=== PATIENT | female | born 1995 | race Caucasian/White ===

== ENCOUNTER 2020-10-10 18:52 | Emergency (ER) | payer OTHER, SELFPAY ==
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
[2020-10-10 19:04] VITALS: BP 113/62; PULSE 73; RESP 16; TEMP 36.8; O2SAT 98; BMI 26.2
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
== END 2020-10-10 20:28 | disposition home or self-care (01) ==
PROVIDERS: Emergency Provider Internal Medicine; PCP Pediatrics
DX: S80.02XA Contusion of left knee, initial encounter (principal); S80.212A Abrasion, left knee, initial encounter; V43.52XA Car driver injured in collision with other type car in traffic accident, initial encounter; Y93.89 Activity, other specified; Y92.414 Local residential or business street as the place of occurrence of the external cause; Y99.9 Unspecified external cause status
CPT/HCPCS: 73564; 99283; 99284

== ENCOUNTER 2023-05-31 09:56 | Outpatient (REF) | payer OTHER, SELFPAY ==
[2023-05-31 15:44] LABS: Alanine Aminotransferase 14 U/L (0-31); Albumin Level 4.4 g/dL (3.5-5.0); Alkaline Phosphatase 71 U/L (39-117); Anion Gap 13 (12-20); Aspartate Amino Transferase 22 U/L (5-31); Bilirubin Direct < 0.2 mg/dL (0.0-0.5); Bilirubin Total 0.2 mg/dL (0.0-1.0); Blood Urea Nitrogen 13 mg/dL (9-16); Calcium 9.2 mg/dL (8.4-10.2); Carbon Dioxide 22 mmol/L (22-29); Chloride 108 mmol/L (96-108); Estimated Glomerular Filt Rate > 60; Glucose Random 69 mg/dL (60-115); Potassium 3.6 mmol/L (3.3-5.1); Sodium 139 mmol/L (135-145); TSH reflex Free T4 3.09 uIU/mL (0.32-4.0); Total Protein 7.5 g/dL (6.5-8.0); Vitamin D 25-OH Total 22.8 ng/mL (>30)
== END 2023-05-31 09:57 | disposition home or self-care (01) ==
LOC: HO.CHCLDS 09:56
PROVIDERS: Visit Provider Pediatrics
DX: J45.20 Mild intermittent asthma, uncomplicated (principal); R53.83 Other fatigue; E55.9 Vitamin D deficiency, unspecified
CPT/HCPCS: 36415; 80048; 80076; 82306; 84443; 85025

== ENCOUNTER 2024-03-05 | Outpatient (REF) | payer MEDICAID, SELFPAY | END 2024-03-05 00:01 | disposition home or self-care (01) | LOC: HO.LNP | PROVIDERS: Visit Provider Pediatrics | DX: Z12.4 Encounter for screening for malignant neoplasm of cervix (principal) | CPT/HCPCS: 87625; 88175 ==

== ENCOUNTER 2024-03-05 11:23 | Outpatient (REF) | payer OTHER, SELFPAY ==
[2024-03-05 14:46] LABS: MANUAL DIFF FLAG NO
[2024-03-05 15:01] LABS: Hematocrit 31.6 % (37.0-47.0); Hemoglobin 9.8 g/dl (12.0-16.0); Imm Gran Abs Auto 0.01 X10*3/uL (0.00-0.03); Imm Gran Pct Auto 0.2 % (0.0-0.4); Lymphocytes Absolute Auto 1.1 X10*3/uL (1.2-4.9); Mean Corpuscular Hemoglobin 21.8 pg (27.0-33.0); Mean Corpuscular Volume 70.4 fL (80.0-98.0); Mean Platelet Volume 11.1 fL (9.4-12.3); Monocytes Absolute Auto 0.3 X10*3/uL (0.1-1.2); Monocytes Percent Auto 8.2 % (2-11); Neutrophils Absolute Auto 2.5 x10*3/uL (2.0-8.3); Neutrophils Percent Auto 62.6 % (45-73); Platelet Count 345 X10*3/uL (160-400); Red Blood Count 4.49 X10*6/uL (4.20-5.50); Red Cell Distribution Width 18.2 % (11.0-16.0)
[2024-03-05 15:23] LABS: Iron 21 mcg/dL (30-160); Percent Iron Saturation 5 % (15-50); Total Iron Binding Capacity 417 mcg/dL (228-428); Unsaturated Iron Binding 396 ug/dL
[2024-03-05 15:41] LABS: Ferritin 6 ng/mL (10-122); Vitamin B12 568 pg/mL (200-900)
== END 2024-03-05 11:24 | disposition home or self-care (01) ==
LOC: HO.CHCLDS 11:23
PROVIDERS: Visit Provider Pediatrics
DX: D50.0 Iron deficiency anemia secondary to blood loss (chronic) (principal)
CPT/HCPCS: 36415; 82607; 82728; 82746; 83540; 85025

== ENCOUNTER → 2024-03-18 10:15 | Outpatient (BNV) | payer MEDICAID, SELFPAY | PROVIDERS: PCP Pediatrics; Referring Provider Pediatrics; Visit Provider Internal Medicine | DX: D50.9 Iron deficiency anemia, unspecified (principal) | CPT/HCPCS: 99204 ==

== ENCOUNTER 2024-04-14 09:00 | Outpatient (RCR) | payer MEDICAID, SELFPAY ==
[2024-03-24 09:01] VITALS: BP 105/61; PULSE 68; RESP 18; TEMP 36.1; O2SAT 98; BMI 26.1
[2024-03-24] MEDS: Iron Sucrose Complex 200 MG in 0.9 % Sodium Chloride 100 ML 440 MG IV (09:20)
[2024-03-31 09:00] VITALS: BP 113/58; PULSE 72; RESP 14; TEMP 36.4; O2SAT 98
[2024-03-31] MEDS: Iron Sucrose Complex 200 MG in 0.9 % Sodium Chloride 100 ML 440 MG IV (09:11)
[2024-03-31] MEDS: 0.9 % Sodium Chloride Flush 10 ML SYRINGE 5 ML IVFLUSH (09:33)
[2024-04-07 09:09] VITALS: BP 110/61; PULSE 69; RESP 16; TEMP 36.6
[2024-04-07] MEDS: Iron Sucrose Complex 200 MG in 0.9 % Sodium Chloride 100 ML 440 MG IV (09:27)
[2024-04-07] MEDS: 0.9 % Sodium Chloride Flush 10 ML SYRINGE 5 ML IVFLUSH (09:44)
[2024-04-14 09:26] VITALS: BP 116/58; PULSE 65; RESP 16; TEMP 36.3; O2SAT 99
[2024-04-14] MEDS: Iron Sucrose Complex 200 MG in 0.9 % Sodium Chloride 100 ML 440 MG IV (09:43)
[2024-04-14] MEDS: 0.9 % Sodium Chloride Flush 10 ML SYRINGE 5 ML IVFLUSH (09:59)
== END 2024-04-14 10:33 | disposition home or self-care (01) ==
LOC: HO.INF 09:00
PROVIDERS: Visit Provider Internal Medicine
DX: D64.9 Anemia, unspecified (principal)
CPT/HCPCS: 96365; 96374; J1756

== ENCOUNTER 2024-08-14 10:55 | Outpatient (REF) | payer MEDICAID, SELFPAY ==
[2024-08-14 14:20] LABS: MANUAL DIFF FLAG NO
[2024-08-14 14:24] LABS: Basophils Percent Auto 0.7 % (0-2); Eosinophils Absolute Auto 0.1 X10*3/uL (0.0-0.4); Eosinophils Percent Auto 1.9 % (0-4); Hematocrit 36.6 % (37.0-47.0); Hemoglobin 12.7 g/dl (12.0-16.0); Imm Gran Abs Auto 0.01 X10*3/uL (0.00-0.03); Imm Gran Pct Auto 0.2 % (0.0-0.4); Lymphocytes Absolute Auto 1.5 X10*3/uL (1.2-4.9); Lymphocytes Percent Auto 34.2 % (20-40); Mean Corpuscular HGB Conc 34.7 g/dl (31.0-35.0); Mean Corpuscular Hemoglobin 30.5 pg (27.0-33.0); Mean Platelet Volume 10.3 fL (9.4-12.3); Monocytes Absolute Auto 0.4 X10*3/uL (0.1-1.2); Monocytes Percent Auto 8.4 % (2-11); Neutrophils Absolute Auto 2.4 x10*3/uL (2.0-8.3); Neutrophils Percent Auto 54.6 % (45-73); Platelet Count 298 X10*3/uL (160-400); Red Blood Count 4.16 X10*6/uL (4.20-5.50); Red Cell Distribution Width 12.8 % (11.0-16.0); White Blood Count 4.3 X10*3/uL (4.8-10.8)
[2024-08-14 15:04] LABS: TSH reflex Free T4 2.24 uIU/mL (0.32-4.0)
[2024-08-14 15:52] LABS: CT PCR NOT DETECTED (Not Detect.); NG PCR NOT DETECTED (Not Detect.)
[2024-08-15 04:07] LABS: Syphilis Screen Nonreactive (Nonreactive)
[2024-08-15 04:53] LABS: HIV AB/AG Nonreactive (Nonreactive); HIV Num 1 0.08 S/CO (0.00-0.99)
[2024-08-15 06:05] LABS: ~HepC Num1 0.13 S/CO (0.00-0.79); ~Hepatitis C Antibody Nonreactive (Nonreactive)
== END 2024-08-14 10:56 | disposition home or self-care (01) ==
LOC: HO.CHCLDS 10:55
PROVIDERS: Visit Provider Pediatrics
DX: J45.20 Mild intermittent asthma, uncomplicated (principal); Z11.3 Encounter for screening for infections with a predominantly sexual mode of transmission
CPT/HCPCS: 36415; 84443; 85025; 86780; 86803; 87389; 87491; 87591

== ENCOUNTER 2024-11-06 16:01 | Outpatient (REF) | payer MEDICAID, SELFPAY ==
--- OUTSIDE RECORDS SUMMARY | 2024-11-06 16:47 | XMS_ITS | Clinical Summary ---
Author Organization [facility] [facility] Address [address] [place] [address] Care Team Providers Care Team Leader Name Role Phone Kristi Hernandez MD Primary Care Provider [phone] Allergies Active Allergy Reactions Criticality Noted Date Comments Latex 02/28/2017 Other reaction(s): Trouble Breathing Medications albuterol 108 (90 Base) MCG/ACT inhaler Inhale 2 puffs every 4 (four) hours if needed for wheezing. 18 g 3 08/14/2024 08/14/20 25 Active Melatonin 3 MG capsule Take 1 capsule orally at bedtime prn insomnia 30 capsule 11 08/14/2024 Active azithromycin (Zithromax) 250 MG tablet Take 2 tabs orally on day 1 ,then 1 tab orally daily for 4 more days 6 tablet 11/06/2024 Active Active Problems Problem Noted Date Diagnosed Date Mild asthma 08/30/2015 Encounters Date Type Department Care Team Description 11/06/2024 9:00 AM EDT Office Visit [facility] [address] [place] [address] Kristi Hernandez MD URI, acute (Primary Dx); Subacute maxillary sinusitis 11/06/2024 Population Health Risk Score [facility] (C3) Department [address] [phone] Provider, Population Health Generic 11/06/2024 Travel 11/03/2024 Travel 08/31/2024 Patient Outreach [facility] [address] [place] [address] Kristi Hernandez MD Care Coordination (SDFL/graduate) 08/27/2024 Telephone [facility] [address] [place] [address] Anisha Modi RN Care Management (C3- f/u call lv) 08/14/2024 10:00 AM EST Office Visit [facility] [address] [place] [address] Kristi Hernandez MD Routine screening for STI (sexually transmitted infection) (Primary Dx); Mild intermittent asthma without complication; Routine general medical examination at a health care facility 08/14/2024 Patient Outreach [facility] [address] [place], [place] [phone] Kristi Hernandez MD Care Coordination ([facility] f/u) 08/14/2024 Telephone [facility] [address] [place] [address] Anisha Modi RN Care Management ([facility]- f/u call) 08/14/2024 Travel from Last 3 Months Immunizations Name Administration Dates Next Due DTaP, 5 pertussis antigens 10/30/2002,,04/11/1998,01/18,1997 HPV, Quadrivalent 10/03/2010,03/16/2008,12/01/19 08 Hep A, ped/adol, 2 dose 02/17/2014 Hep B, Adolescent or Pediatric 10/04/1998,1997,1997 Hib (HbOC) 10/04/1998, 8,01/18/1998,10/14 IPV 10/30/2002,199 8,01/18/1998,10/14 Influenza injectable quadriv alent preservative free 05/31/2023,07/12/2022,06/29/2021,08/30 Influenza, IIV3, injectable 10/03/2010 MMR 10/30/2002,10/04/1998 Meningococcal MCV4P ACYW-135 02/23/2016,10/03/19 11 Moderna Covid-19 Vaccine 12+ 02/18/2021,01/22/20 21 Tdap 02/23/2016,12/01/2007 Varicella 09/15/2000 Social History Tobacco Use Types Packs/Day Years Used Date Smoking Tobacco: Never Passive Smoke Exposure: Never Smokeless Tobacco: Never Tobacco Cessation:Counseling Given: Not Answered Alcohol Answer Date Recorded Frequency of Alcohol Consumption Not on file 05/31/2023 Average Number of Drinks Not on file 023 Frequency of Binge Drinking Not on file 01/2023 Score 0 05/31/2023 Depression Answer Date Recorded Patient Health Questionnaire-9 Score 1 08/14/2024 Patient Health Questionnaire-9 Score 1 08/14/2024 Last PHQ-9: Questionnaire Data Not on file 1 10/15/2023 Housing Stability Answer Date Recorded What is your housing situation today? I have bhavya delacruz 08/07/[address] you li ve. Do you have problems with any of the following? None of the above 08/07/2024 Food Insecurity Answer Date Recorded Within the past 12 months, y ou worried that your food would run out before you got money to buy more: Never True 08/07/2024 Within the past 12 months,th e food you bought just didn't last and you didn't have enough money to get more: Never True Transportation Answer Date Recorded In the past 12 months, has l ack of transportation kept you from medical appts, meetings, work or from getting things needed for daily living? No 06/12/2024 Utilities Answer Date Recorded In the past 12 months, has t he electric, gas, oil or water company threatened to shut off services in your home? No 08/07/2024 Depression Answer Date Recorded Patient Health Questionnaire-2 Score 0 08/14/2024 Internet Access Answer Date Recorded Internet Access Q1 Yes 06/12/2024 Internet Access Q2 Not on file 06/12/2024 Comments Unknown Sex and Gender Information Value Date Recorded Sex Assigned at Female 06/25/2022 10:19 AM EDT Legal Sex Female 10:19 AM EDT Gender Identity Female 06/25/2022 10:19 AM EDT Sexual Orientation Straight 06/25/2022 10 :19 AM EDT Last Filed Vital Signs Vital Sign Reading Time Taken Comments Blood Pressure 127/72 11/06/2024 9:11 AM EDT Pulse 83 11/06/2024 9:11 AM EDT Temperature 36.3 ??C (97.4 ??F) 11/06/2024 9:11 AM ED T Respiratory Rate 16 11/06/2024 9:11 AM EDT Oxygen Saturation 98% 11/06/2024 9:11 AM EDT Inhaled Oxygen Concentration - - Weight 54 kg (119 lb) 11/06/2024 9:11 AM EDT Height 149.9 cm (4' 11 ) 11/06/2024 9:11 AM EDT Body Mass Index 24.04 11/06/2024 9:11 AM EDT Plan of Treatment Health Maintenance Due Date Last Done Comments Family Planning (PISQ) 2012 Hepatitis A Vaccines (2 of 2 - 2-dose series) 08/19/2014 02/17/2014 Pneumococcal Vaccine: Pediatrics (0 to 5 Years) and At-Risk Patients (6 to 49) Years) (1 of 2 - PCV) 2016 COVID-19 Vaccine ( - season) 2024 02/18/2021, 01/21/2021 SDOH Screening 08/07/2025 08/07/2024 Alcohol/Substance Use Screening 08/14/2025 08/14/2024 Depression Screening 08/14/2025 08/14/2024, 08/14/20 24 Tobacco Screening 11/06/2025 11/06/2024 DTaP/Tdap/Td Vaccines (8 - Td or Tdap) 02/22/2026 02/23/2016, 12/01/2007, 10/30/2002, Additional history exists Pap Smear 03/10/2027 03/10/2024, 02/23, 02/01/2021 Zoster Vaccines (1 of 2) 2047 RSV Patients and Patients Aged 60 years or older (1 - 1-dose 75+ series) 2072 HIB Vaccines Completed 10/04/1998, 03/26, 01/18/1998, Additional history exists Hepatitis B Vaccines Completed 10/04/1998, 1997, 1997 IPV Vaccines Completed 10/30/2002, 03/26, 01/18/1998, Additional history exists HPV Vaccines Completed 10/03/2010, 02/24, 12/01/2007 Meningococcal Vaccine Completed 02/23/2016, 011 Influenza Vaccine Completed 06/24/2024, , 07/12/2022, Additional history exists HIV Screening Completed 08/14/2024 Hepatitis C Screening Completed 08/14/2024 RSV under 20 months Aged Out No longe r eligible based on patient's age to complete this topic Rotavirus Vaccines Aged Out No longer eligible based on patient's age to complete this topic Procedures Procedure Name Priority Date/Time Associated Diagnosis Comments HIV 1/2 ANTIGEN/ANTIBODY, FOURTH GENERATION W/RFL Routine 08/14/2024 10:56 AM EST Mild intermittent asthma without complication Routine screening for STI (sexually transmitted infection) SYPHILIS SCREEN Routine 08/14/2024 10:56 AM EST Mild intermittent asthma without complication Routine screening for STI (sexually transmitted infection) HEPATITIS C AB W/REFL TO HCV RNA, QN, PCR Routine 08/14/2024 10:56 AM EST Mild intermittent asthma without complication Routine screening for STI (sexually transmitted infection) TSH W/REFLEX TO FT4 Routine 08/14/2024 1 0:56 AM EST Mild intermittent asthma without complication Routine screening for STI (sexually transmitted infection) CBC WITH AUTO DIFFERENTIAL Routine 08/14/2024 10:56 AM EST Mild intermittent asthma without complication Routine screening for STI (sexually transmitted infection) CHLAMYDIA/N. GONORRHOEAE RNA, TMA, UROGENITAL Routine 08/14/2024 10:40 AM EST Mild intermittent asthma without complication Routine screening for STI (sexually transmitted infection) HM PAP/HPV Routine 03/10/2024 from Last 3 Months or Most Recently Relevant to Health Maintenance Results * Syphilis Screen (08/14/2024 10:56 AM EST) Syphilis Screen Nonreactive Nonreactive [facility] Blood 08/14/2024 10:5 6 AM EST 08/14/2024 2:14 PM EST us Kristi Hernandez MD LAB BLOOD ORDERABLES Final Re sult Performing Organization Address City/[facility]/ZIP Co de Phone Number [facility] [address] [place] [address] [phone] * TSH W/Reflex to FT4 (08/14/2024 10:56 AM EST) Pathologist [facility] TSH reflex Free T4 2.24 0.32 - 4.0 uIU/mL [facility] Blood Venous blood specimen / Unknown 08/14/2024 10:56 AM EST 08/14/2024 2:14 PM EST us Kristi Hernandez MD LAB BLOOD ORDERABLES Final Re sult Performing Organization Address [facility] Co de Phone Number [facility] [address] [place] [address] [phone] * (ABNORMAL) CBC auto differential (08/14/2024 10:56 AM EST) Pathologist [facility] White Blood Count 4.3(L) 4.8 - 10.8 X10*3/uL [facility] Red Blood Count 4.16(L) 4.20 - 5.50 X10*6/uL [facility] Hemoglobin 12.7 12.0 - 16.0 g/dl [facility] Hematocrit 36.6(L) 37.0 - 47.0 % [facility] Mean Corpuscular Volume 88.0 80.0 - 98.0 fL [facility] Mean Corpuscular Hemoglobin 30.5 27.0 - 33.0 pg [facility] Mean Corpuscular HGB Conc 34.7 31.0 - 35.0 g/dl [facility] Red Cell Distribution Width 12.8 11.0 - 16.0 % [facility] Platelet Count 298 160 - 400 X10*3/uL [facility] Mean Platelet Volume 10.3 9.4 - 12.3 fL [facility] Neutrophils Percent Auto 54.6 45 - 73 % [facility] Imm Gran Pct Auto 0.2 0.0 - 0.4 % [facility] Lymphocytes Percent Auto 34.2 20 - 40 % [facility] Monocytes Percent Auto 8.4 2 - 11 % [facility] Eosinophils Percent Auto 1.9 0 - 4 % [facility] Basophils Percent Auto 0.7 0 - 2 % [facility] NRBC Pct Auto 0.0 0.0 - 0.2 /100WBC [facility] Neutrophils Absolute Auto 2.4 2.0 - 8.3 x10*3/uL [facility] Imm Gran Abs Auto 0.01 0.00 - 0.03 X10*3/uL [facility] Lymphocytes Absolute Auto 1.5 1.2 - 4.9 X10*3/uL [facility] Monocytes Absolute Auto 0.4 0.1 - 1.2 X10*3/uL [facility] Eosinophils Absolute Auto 0.1 0.0 - 0.4 X10*3/uL [facility] Basophils Absolute Auto 0.0 0.0 - 0.2 X10*3/uL [facility] NRBC Abs Auto 0.000 0.0 - 0.012 X10*3/uL [facility] Blood Venous blood specimen / Unknown 08/14/2024 10:56 AM EST 08/14/2024 2:14 PM EST us Kristi Hernandez MD LAB BLOOD ORDERABLES Final Re sult [facility] [address], [place] [phone] * Hepatitis C Antibody with Reflex to HCV, RNA, Quantitative, Real-Time PCR (08/14/2024 10:56 AM EST) Hepatitis C Antibody Nonreactive Nonreactive [facility] Comment:Antibodies to HCV no t detected; does not exclude early acuteHCV infection. Blood Venous blood specimen / Unknown 08/14/2024 10:56 AM EST 08/14/2024 2:14 PM EST Kristi Hernandez MD LAB BLOOD ORDERABLES Final Re sult Performing Organization Address [facility] Co de Phone Number [facility] [address] [place] [address] [phone] * HIV-1/2 Antigen and Antibodies, Fourth Generation, with Reflexes (08/14/2024 10:56 AM EST) HIV AB/AG Nonreactive Nonreactive [facility] Comment:HIV-1 p24 Ag and/or HIV-1/HIV-2 Ab not detected.A test result that is nonreactive does not exclude thepossibility of exposure to or infection with HIV-1 and/orHIV-2. Nonreactive results in this assay for individualswith prior exposure to HIV-1 and/or HIV-2 may be due toantigen and antibody levels that are below the limit ofdetection of this assay.The [facility] HIV Ag/Ab Combo assay result andsupplemental assay results should be interpreted inconjunction with the patient's clinical presentation,history and other laboratory results. If the results areinconsistent with clinical evidence, additional testing issuggested to confirm the result. Blood Venous blood specimen / Unknown 08/14/2024 10:56 AM EST 08/14/2024 2:14 PM EST Kristi Hernandez MD LAB BLOOD ORDERABLES Final Re sult Performing Organization Address [facility]/ZIP Co de Phone Number [facility] [address] [place] [address] [phone] * Chlamydia/N. Gonorrhoeae RNA, TMA, Urogenitial (08/14/2024 10:40 AM EST) CT PCR NOT DETECTED Not Detect. [facility] Comment:A not detected test result does not exclude the possibilityof infection because test results can be affected byimproper specimen collection, concurrent antibiotic therapy,or the number of organisms in the specimen which may bebelow the sensitivity of the test. As with many diagnostictests, results from the Xpert CT/NG assay should beinterpreted in conjunction with other laboratory andclinical data available to the clinician.Xpert CT/NG performance has not been evaluated in patientsless than 14 years of age. The assay should not be used forthe evaluationof suspected sexual abuse or for other medico-legalindications. Additional testing is recommended in anycircumstance when false positive or false negative resultscould lead to adverse medical, social or psychologicalconsequences. NG PCR NOT DETECTED Not Detect. [facility] Comment:A not detected test result does not exclude the possibilityof infection because test results can be affected byimproper specimen collection, concurrent antibiotic therapy,or the number of organisms in the specimen which may bebelow the sensitivity of the test. As with many diagnostictests, results from the Xpert CT/NG assay should beinterpreted in conjunction with other laboratory andclinical data available to the clinician.Xpert CT/NG performance has not been evaluated in patientsless than 14 years of age. The assay should not be used forthe evaluationof suspected sexual abuse or for other medico-legalindications. Additional testing is recommended in anycircumstance when false positive or false negative resultscould lead to adverse medical, social or psychologicalconsequences. Swab (Vaginal Swab) 08/14/2024 10:40 AM EST 08/14/2024 2:20 PM EST Narrative [facility] - 08/14/2024 3:53 PM EST Vaginal Kristi Hernandez MD LAB MICROBIOLOGY - GENERAL OR DERABLES Final Result [facility] [address] [place] [address] [phone] * HM PAP/HPV (03/10/2024) Pap Smear 1. NILM 1. NILM Kritsi Hernandez MD HEALTH MAINTENANCE Final Resu lt from Last 3 Months or Most Recently Relevant to Health Maintenance Insurance [facility] C3 Care Teams Team Leader Relationship Specialty Start Date End Date Kristi Hernandez MD [address] [place] [address] [place] [phone] PCP - General Family Medicine 02/15/12
--- OUTSIDE RECORDS SUMMARY | 2024-11-06 16:47 | XMS_ITS | Encounter Summary ---
Author Organization [employer] Address [address] [place] [address] Care Team Providers Care Motorcycle Mechanic Name Role Phone Kristi Hernandez MD Primary Care Provider [phone] Encounter Details Date Type Department Care Team (Latest Contact Info) Description 11/06/2024 Travel Social History Tobacco Use Types Packs/Day Years Used Date Smoking Tobacco: Never Passive Smoke Exposure: Never Smokeless Tobacco: Never Alcohol Answer Date Recorded Frequency of Alcohol [...] Orientation Straight 06/25/2022 10 :19 AM EDT documented as of this encounter Plan of Treatment Not on file documented as of this encounter Visit Diagnoses Not on filedocumented in this encounter Additional Health Concerns Assessment Noted Time PHQ-9 Depression Total Score: 1 08/14/20 24 10:47 AM EST documented as of this encounter Care Teams Motorcycle Mechanic Relationship Specialty Start Date End Date Kristi Hernandez MD [address] [place] [phone] PCP - General Family Medicine 02/15/12 documented as of this encounter
--- OUTSIDE RECORDS SUMMARY | 2024-11-06 16:48 | XMS_ITS | Encounter Summary ---
Author Organization [employer] Address [address] [place] [address] Care Team Providers Care Search Coordinator Name Role Phone Kristi Hernandez MD Primary Care Provider Encounter Details Date Type Department Care Team (Latest Contact Info) Description 11/03/2024 Travel Social History Tobacco Use Types Packs/Day [...] documented as of this encounter Care Teams Search Coordinator Relationship Specialty Start Date End Date Kristi Hernandez MD [address] [place] [phone] PCP - General Family Medicine 02/15/12 documented as of this encounter
--- OUTSIDE RECORDS SUMMARY | 2024-11-06 16:48 | XMS_ITS | Encounter Summary ---
Author Organization [employer] Address [address] [facility] 7t [place] [address] Care Team Providers Care Joint Creaser Name Role Phone Kristi Hernandez MD Primary Care Provider [phone] Encounter Details Date Type Department Care Team ([facility] st Contact Info) Description 11/06/2024 9:00 AM EDT Office Visit [facility] CHC MED & PEDS [address] [place], [place] [phone] Kristi Hernandez MD [address] [place] [address] URI, acute (Primary Dx); Subacute maxillary sinusitis Social History Tobacco Use Types Packs/Day Years [...] AM EDT documented as of this encounter Last Filed Vital Signs Vital Sign Reading [...] Mass Index 24.04 11/06/2024 9:11 AM EDT documented in this encounter Progress Notes * Kristi Hernandez MD - 11/06/2024 9:00 AM EDT Subjective Patient ID: Carmen Vela is a 29 y.o. female who presents for URI. Took OTC dayquill and nyquill.Works at a hospital. Sore Throat This is a new problem. The current episode started in the past 7 days. The problem has been waxing and waning. Neither side of throat is experiencing more pain than the other. There has been no fever. The fever has been present for 3 to 4 days. The pain is at a severity of 4/10. The pain is mild. Associated symptoms include congestion, coughing and headaches. Pertinent negatives include no abdominal pain, diarrhea, drooling, ear discharge, ear pain, hoarse voice, plugged ear sensation, neck pain, shortness of breath, stridor, swollen glands, trouble swallowing or vomiting. URI This is a new problem. The current episode started in the past 7 days. The problem has been unchanged. There has been no fever. Associated symptoms include congestion, coughing, headaches and a sore throat. Pertinent negatives include no abdominal pain, diarrhea, ear pain, neck pain, plugged ear sensation, swollen glands or vomiting. Review of Systems HENT: Positive for congestion and sore throat. Negative for drooling, ear discharge, ear pain, hoarse voice and trouble swallowing. Respiratory: Positive for cough. Negative for shortness of breath and stridor. Gastrointestinal: Negative for abdominal pain, diarrhea and vomiting. Musculoskeletal: Negative for neck pain. Neurological: Positive for headaches. Objective BP 127/72 (BP Location: Left arm, Patient Position: Sitting, BP Cuff Size: Adult) Pulse83 Temp 97.4 ??F (36.3 ??C) (Oral) Resp 16 Ht 4' 11 (1.499 m) Wt 119 lb (54 kg) SpO2 98% BMI 24.04 kg/m?? Physical Exam Constitutional: General: She is not in acute distress. Appearance: Normal appearance. She is not ill-appearing. HENT: Head: Normocephalic. Right Ear: Tympanic membrane and ear canal normal. There is no impacted cerumen. Left Ear: Tympanic membrane and ear canal normal. There is no impacted cerumen. Nose: Nose normal. Mouth/Throat: Mouth: Mucous membranes are moist. Pharynx: No oropharyngeal exudate or posterior oropharyngeal erythema. Eyes: Extraocular Movements: Extraocular movements intact. Conjunctiva/sclera: Conjunctivae normal. Pupils: Pupils are equal, round, and reactive to light. Cardiovascular: Rate and Rhythm: Normal rate and regular rhythm. Pulses: Normal pulses. Heart sounds: Normal heart sounds. Pulmonary: Effort: Pulmonary effort is normal. No respiratory distress. Breath sounds: Normal breath sounds. Abdominal: Palpations: Abdomen is soft. Musculoskeletal: General: Normal range of motion. Cervical back: Normal range of motion. Skin: General: Skin is warm. Capillary Refill: Capillary refill takes less than 2 seconds. Neurological: General: No focal deficit present. Mental Status: She is alert and oriented to person, place, and time. Psychiatric: Mood and Affect: Mood normal. Behavior: Behavior normal. Thought Content: Thought content normal. Judgment: Judgment normal. Assessment/Plan Diagnoses and all orders for this visit: URI, acute Comments: Tested but negative for covid,flu etc.. Orders: - POCT Rapid Covid-19 BinaxNOW - POCT Rapid Influenza A OSOM - POCT Rapid Influenza B OSOM - Respiratory Viral Panel PCR Subacute maxillary sinusitis Comments: azithro x 5 days prescribed.Continue increased fluid intake,motrin prn etc..RTC if not betetr soon. Other orders - azithromycin (Zithromax) 250 MG tablet; Take 2 tabs orally on day 1 ,then 1 tab orally daily for 4 more days documented in this encounter Plan of Treatment Scheduled Orders Name Type Priority Associated Diagnoses Orde r Schedule POCT Rapid Covid-19 BinaxNOW Point of Care Testing Routine URI, acute Ordered: 11/06/2024 POCT Rapid Influenza A OSOM Point of Care Testing Routine URI, acute Ordered: 11/06/2024 POCT Rapid Influenza B OSOM Point of Care Testing Routine URI, acute Ordered: 11/06/2024 Respiratory Viral Panel PCR Lab Routine URI, acute Ordered: 11/06/2024 documented as of this encounter Visit Diagnoses Diagnosis URI, acute- Primary Acute upper respiratory infections of unspecified site Subacute maxillary sinusitis documented in this encounter Additional Health Concerns Assessment Noted Time PHQ-9 Depression Total Score: 1 08/14/20 24 10:47 AM EST documented as of this encounter Care Teams Joint Creaser Relationship Specialty Start Date End Date Kristi Hernandez MD [address] [place] [address] PCP - General Family Medicine 02/15/12 documented as of this encounter
--- OUTSIDE RECORDS SUMMARY | 2024-11-06 16:48 | XMS_ITS | Encounter Summary ---
Author Organization [employer] Address [address] [facility] 7t [place] [address] Care Team Providers Care Senior Underwriter Name Role Phone Kristi Hernandez MD Primary Care Provider [phone] Encounter Details Date Type Department Care Team ([facility] st Contact Info) Description 11/06/2024 Population Health Risk Score [facility] ([facility] Department [address] [place] [address] [phone] Provider, Population Health Generic Social History Tobacco Use Types Packs/Day Years [...] documented as of this encounter Care Teams Senior Underwriter Relationship Specialty Start Date End Date Kristi Hernandez MD [address] [place] [id number] PCP - General Family Medicine 02/15/12 documented as of this encounter
--- OUTSIDE RECORDS SUMMARY | 2024-11-06 16:48 | XMS_ITS | Encounter Summary ---
Author Organization [employer] Address [address] [facility] 7t [place] [address] Care Team Providers Care Mold Cleaner Name Role Phone Kristi Hernandez MD Primary Care Provider [phone] Anisha Modi RN Unavailable [phone] Reason for Visit * Reason Comments Care Coordination resources Encounter Details Date Type Department Care Team (Latest Contact Info) Description 06/23/2024 Patient Outreach [facility] CHC MED & PEDS [address] [place] [address] Kristi Hernandez MD [address] [place] [address] Care Coordination (resources) Social History Tobacco Use Types Packs/Day Years Used Date Smoking Tobacco: Never Passive Smoke Exposure: Never Smokeless Tobacco: Never Alcohol Answer Date Recorded Frequency of Alcohol Consumption Not on file 05/31/2023 Average Number of Drinks Not on file 023 Frequency of Binge Drinking Not on file 01/2023 Score 0 05/31/2023 Depression Answer Date Recorded Patient Health Questionnaire-9 Score 3 05/31/2023 Housing Stability Answer Date Recorded What is your housing situation today? I have housing today, but I am worried about losing housing in the future 06/12/[address] you li ve. Do you have problems with any of the following? None of the above 06/12/2024 Food Insecurity Answer Date Recorded Within the past 12 months, y ou worried that your food would run out before you got money to buy more: Sometimes True 2023 Within the past 12 months,th e food you bought just didn't last and you didn't have enough money to get more: Sometimes True 06/12/2024 Transportation Answer Date Recorded In the past 12 months, has l ack of transportation kept you from medical appts, meetings, work or from getting things needed for daily living? No 06/12/2024 Utilities Answer Date Recorded In the past 12 months, has t he electric, gas, oil or water company threatened to shut off services in your home? No 06/24/2023 Depression Answer Date Recorded Patient Health Questionnaire-2 Score 0 05/31/2023 Internet Access Answer Date Recorded Internet Access [...] Assessment Noted Time PHQ-9 Depression Total Score: 3 05/31/20 23 9:26 AM EDT documented as of this encounter Care Teams Mold Cleaner Relationship Specialty Start Date End Date Kristi Hernandez MD [address] [place] [address] PCP - General Family Medicine 02/15/12 Anisha Modi RN [address] [place] [address] Lot AttendantTax Examiner 06/03/24 08/26/24 documented as of this encounter
[2024-11-07 11:57] LABS: Adenovirus PCR Not Detected (Not Detect.); Bordetella parapertussis PCR Not Detected (Not Detect.); Bordetella pertussis PCR Not Detected (Not Detect.); Chlamydia pneumoniae PCR Not Detected (Not Detect.); Coronavirus 229E PCR Not Detected (Not Detect.); Coronavirus HKU1 PCR Not Detected (Not Detect.); Coronavirus NL63 PCR Not Detected (Not Detect.); Coronavirus OC43 PCR Detected (Not Detect.); Human metapneumovirus PCR Not Detected (Not Detect.); Influenza A PCR Not Detected (Not Detect.); Influenza B PCR Not Detected (Not Detect.); Mycoplasma pneumoniae PCR Not Detected (Not Detect.); Parainfluenza 1 PCR Not Detected (Not Detect.); Parainfluenza 2 PCR Not Detected (Not Detect.); Parainfluenza 3 PCR Not Detected (Not Detect.); Parainfluenza 4 PCR Not Detected (Not Detect.); RSV PCR Not Detected (Not Detect.); Rhino/Enterovirus PCR Not Detected (Not Detect.)
[2024-11-07 12:45] LABS: SARS-CoV-2 PCR Not Detected (Not Detect.)
== END 2024-11-06 16:02 | disposition home or self-care (01) ==
LOC: HO.CHCLNP 16:01
PROVIDERS: Visit Provider Pediatrics
DX: J06.9 Acute upper respiratory infection, unspecified (principal)
CPT/HCPCS: 87633

== ENCOUNTER 2025-07-28 11:52 | Outpatient (REF) | payer MEDICAID, SELFPAY ==
--- OUTSIDE RECORDS SUMMARY | 2025-07-28 11:00 | XMS_ITS | Encounter Summary ---
Author Organization [employer] Address [address] [place] [address] 7 [place] [address] Care Team Providers Care Transitional Kindergarten Teacher Name Role Phone Kristi Hernandez MD Primary Care Provider [phone] Encounter Details Date Type Department Care Team ([facility] st Contact Info) Description 07/28/2025 11:00 AM EST Office Visit [facility] CHC MED & PEDS [address] [place], [place] [phone] Kristi Hernandez MD [address] [place] [address] Missed period (Primary Dx); control counseling Social History Tobacco Use Types Packs/Day Years [...] Sign Reading Time Taken Comments Blood Pressure 116/72 07/28/2025 11:28 AM EST Pulse 72 07/28/2025 11:28 AM EST Temperature 36.2 C (97.2 F) 07/28/2025 11:28 AM EST Respiratory Rate 16 07/28/2025 11:28 AM EST Oxygen Saturation - - Inhaled Oxygen Concentration - - Weight 54 kg (119 lb) 07/28/2025 11:28 AM EST Height - - Body Mass Index 24.04 03/31/2025 8:59 AM EDT documented in this encounter Progress Notes * Kristi Hernandez MD - 07/28/2025 11:00 AM EST Subjective Patient ID: Carmen Vela is a 29 y.o. female who presents for missed period x 1. Carmen Vela, 29 years Amenorrhea and Associated Symptoms Carmen Vela reports being 15 days late for her period. She describes breast tenderness and increased breast size, with discomfort significant enough that she cannot wear a bra. She also notes backpain and weight gain of 9 lbs since March 2025. She reports a headache and nausea prior to the visit. Denies nipple discharge. No spotting. States that her periods have always been regular in the past. Reports being sexually active with the same partner since at least July of the previous yearand using condoms at all times. No current use of vitamins. Reports sleeping 7-8 hours pernight. Ankle Injury History of ankle sprain in March 2025, now resolved. Review of Systems Constitutional: Negative for activity change, chills, fever and unexpected weight change. Respiratory: Negative for cough, shortness of breath and wheezing. Cardiovascular: Negative for chest pain, palpitations and leg swelling. Gastrointestinal: Negative for abdominal pain and blood in stool. Endocrine: Negative for polydipsia and polyuria. Genitourinary: Positive for menstrual problem. Negative for decreased urine volume, difficulty urinating, dyspareunia, dysuria, hematuria, pelvic pain, vaginal bleeding, vaginal discharge and vaginalpain. Musculoskeletal: Negative for arthralgias and gait problem. Skin: Negative for color change and rash. Neurological: Negative for dizziness and headaches. Hematological: Negative for adenopathy. Psychiatric/Behavioral: Negative for behavioral problems, dysphoric mood, hallucinations, sleep disturbance and suicidal ideas. The patient is not nervous/anxious. Objective BP 116/72 (BP Location: Left arm, Patient Position: Sitting, BP Cuff Size: Adult) Pulse72 Temp 97.2 ??F (36.2 ??C) (Oral) Resp 16 Wt 119 lb (54 kg) LMP 06/15/2025 (Exact Date) BMI 24.04 kg/m?? Physical Exam Constitutional: General: She is not in acute distress. Appearance: Normal appearance. She is not ill-appearing. HENT: Head: Normocephalic. Right Ear: Tympanic membrane and ear canal normal. Left Ear: Tympanic membrane and ear canal normal. Nose: Nose normal. Mouth/Throat: Mouth: Mucous membranes [...] motion. Cervical back: Normal range of motion. Right lower leg: No edema. Left lower leg: No edema. Skin: General: Skin is warm. Capillary Refill: Capillary refill takes less than 2 seconds. Neurological: General: No focal deficit present. Mental Status: She is alert and oriented to person, place, and time. Psychiatric: Mood and Affect: Mood normal. Behavior: Behavior normal. Thought Content: Thought content normal. Judgment: Judgment normal. Assessment/Plan Diagnoses and all orders for this visit: Missed period: - considered possible given 15-day delay in menses; [id number] urinalysis appeared negative per discussion, but not excluded. Low suspicion for hypertension-related etiology. - Ordered serum test and additional labs including prolactin and thyroid testing. Resultsto be released via patient portal ([facility]) and communicated by message. Proceed to lab today before closure. control counseling: - Desires contraception while finishing school; elects transdermal combined hormonal contraceptive patch. - Prescribed transdermal contraceptive patch: apply 1 patch weekly for 3 consecutive weeks, then remove for 1 patch-free week; intended 3-month supply (9 patches) sent to [facility] in [place], subject to insurance coverage. Use condoms consistently for the next two months for back-up until contraceptive efficacy is established. Advised use of phone reminders to ensure weekly patch changes. Offered condoms. Missed period - POCT Urine - hCG, Total, Quantitative; Future - TSH W/Reflex to FT4; Future - Prolactin, Dilution Study; Future control counseling - norelgestromin-ethinyl estradiol (Ortho-Evra) 150-35 MCG/24HR; Apply 1 patch each week for 3 weeks, then remove for 1 week. documented in this encounter Plan of Treatment Scheduled Orders Name Type Priority Associated Diagnoses Orde r Schedule hCG, Total, Quantitative Lab Routine Missed period Expected: 07/28/2025 (Approximate), Expires: 07/28/2026 TSH W/Reflex to FT4 Lab Routine Missed period Expected: 07/28/2025 (Approximate), Expires: 07/28/2026 Prolactin, Dilution Study Lab Routine Missed period Expected: 07/28/2025 (Approximate), Expires: 07/28/2026 documented as of this encounter Procedures Procedure Name Priority Date/Time Associated Diagnosis Comments POCT , URINE Routine 07/28/2025 11:49 AM EST Missed period documented in this encounter Results * POCT Urine (07/28/2025 11:49 AM EST) Preg Test, Ur Negative Negative, Indeterminate, None Detected, Trace, 3+, Specimen unsatisfactory for evaluation, Weakly Positive, 1+, 2+ QC Media Lot # [id number] Lot# Expiration Date Urine 07/28/2025 11:4 9 AM EST us Kristi Hernandez MD POINT OF CARE TEST ENTER/EDIT ORDERABLES Final Result documented in this encounter Visit Diagnoses Diagnosis Missed period- Primary control counseling documented in this encounter Additional Health Concerns Assessment Noted Time PHQ-9 Depression Total Score: 1 08/14/20 24 10:47 AM EST documented as of this encounter Care Teams Transitional Kindergarten Teacher Relationship Specialty Start Date End Date Kristi Hernandez MD [address] [place] [address] PCP - General Family Medicine 02/15/12 documented as of this encounter
--- OUTSIDE RECORDS SUMMARY | 2025-07-28 14:18 | XMS_ITS | Clinical Summary ---
Author Organization [facility] Address [address] [place] [phone] Phone Care Team Providers Care Medicare Sales Executive Name Role Phone Kristi Hernandez MD Primary Care Provider [phone] Allergies No known active allergies Medications No known medications Social History Tobacco Use Types Packs/Day Years Used Date Smoking Tobacco: Never Assessed Education Answer Date Recorded Are you interested in more education? Not on brian e 03/08/2025 Are you concerned about learning? Not on file 03/08/2025 No 03/08/2025 No 03/08/2025 Digital Access Answer Date Recorded No 03/08/2025 No 03/08/2025 Reliable internet access at home? Not on file 03/08/2025 Device with a working camera? Not on file Comments Unknown Sex and Gender Information Value Date Recorded Sex Assigned at Not on file Legal Sex Female 11:45 AM EDT Gender Identity Not on file Sexual Orientation Not on file Last Filed Vital Signs Vital Sign Reading Time Taken Comments Blood Pressure 102/67 03/08/2025 1:26 PM EDT Pulse 61 03/08/2025 1:26 PM EDT Temperature 36.2 C (97.2 F) 03/08/2025 1:26 PM EDT Respiratory Rate 20 03/08/2025 1:26 PM EDT Oxygen Saturation 96% 03/08/2025 1:26 PM EDT Inhaled Oxygen Concentration - - Weight 59 kg (130 lb) 03/08/2025 1:26 PM EDT Height 147.3 cm (4' 10 ) 03/08/2025 1:26 PM EDT Body Mass Index 27.17 03/08/2025 1:26 PM EDT Plan of Treatment Health Maintenance Due Date Last Done Comments DEPRESSION SCREENING 2009 SMOKING Hx and SMOKELESS TOBACCO SCREENING 2010 HEPATITIS C SCREENING 2015 HIV ONE-TIME SCREENING (18-6 5 YEARS) 2015 PAP SMEAR 2018 INFLUENZA VACCINE (#1) 2025 COVID-19 VACCINE (1 - 2024-2 6 season) 2025 Adult Td,Tdap Booster 02/22/2026 02/23/2016 , 12/01/2007 HEPATITIS A VACCINES Aged Out No long er eligible based on patient's age to complete this topic HIB VACCINES Aged Out No longer eligi ble based on patient's age to complete this topic MENINGOCOCCAL VACCINES (ACWY) Aged Out No longer eligible based on patient's age to complete this topic MENINGOCOCCAL VACCINES (B) Aged Out N o longer eligible based on patient's age to complete this topic PNEUMOCOCCAL VACCINES (0-49 years) Aged Out No longer eligible b ased on patient's age to complete this topic Medical Devices Not on file Insurance [address], [place] [address] [facility] C[facility] ACO * Guarantor: Carmen Vela Account Type Relation to Patient Date of Phone Billing Address Personal/Family Self 1995 [address] [place] [address] [facility] [employer] * Guarantor: Mirian Carmen Account Type Relation to Patient Date of Phone Billing Address Personal/Family Self [address] [place] [address] [facility] [employer] * Guarantor: Carmen Vela Account Type Relation to Patient Date of Phone Billing Address Personal/Family Self [address] [place] [facility] [employer] * Guarantor: Carmen Vela Account Type Relation to Patient Date of Phone Billing Address Personal/Family Self [address] [place] [facility] [employer] * Guarantor: Carmen Vela Account Type Relation to Patient Date of Phone Billing Address Personal/Family Self [address] [place] [facility] [employer] Care Teams Medicare Sales Executive Relationship Specialty Start Date End Date Kristi Hernandez MD [address] [place] [address] PCP - General Internal Medicine 03/08/25 Additional Source Comments The information contained in this document represents components of the legal health record. It is not the complete legal health record.[facility]
--- OUTSIDE RECORDS SUMMARY | 2025-07-28 14:18 | XMS_ITS | Clinical Summary ---
Author Organization [email or web address] Address [address] [place] [address] [address] [place] [address] Care Team Providers Care Auto Carrier Driver Name Role Phone Kristi Hernandez MD Primary Care Provider [phone] Allergies Active Allergy Reactions Criticality Noted Date Comments Latex 02/28/2017 Other reaction(s): Trouble Breathing Medications Melatonin 3 MG capsule Take 1 capsule orally at bedtime prn insomnia 30 capsule 11 08/14/2024 Active albuterol 108 (90 Base) MCG/ACT inhaler Inhale 2 puffs every 4 (four) hours if needed for wheezing. 18 g 3 11/27/2024 11/28/19 26 Active norelgestromin- ethinyl estradiol (Ortho-Evra) 150-35 MCG/24HRIndicat ions: control counseling Apply 1 patch each week for 3 weeks, then remove for 1 week. 9 patch 12 07/28/2025 07/28/20 26 Active Active Problems Problem Noted Date Diagnosed Date Mild asthma 08/30/2015 Encounters Date Type Department Care Team Description 07/28/2025 11:00 AM EST Office Visit [facility] [address] [place] [address] Kristi Hernandez MD Missed period (Primary Dx); control counseling 07/28/2025 Travel 07/27/2025 Travel 05/25/2025 Travel from Last 3 Months Immunizations Immunization Administration Dates Next Due DTaP, 5 pertussis antigens 10/30/2002,,04/11/1998,01/18,1997 HPV, Quadrivalent 10/03/2010,03/16/2008,12/01/19 08 Hep A, ped/adol, 2 dose 02/17/2014 Hep B, Adolescent or Pediatric 10/04/1998,1997,1997 Hib (HbOC) 10/04/1998, 8,01/18/1998,10/14 IPV 10/30/2002,199 8,01/18/1998,10/14 Influenza injectable quadriv alent preservative free 05/31/2023,07/12/2022,06/29/2021,08/30 Influenza, IIV3, injectable 10/03/2010 Influenza, Unspecified 06/24/2024 MMR 10/30/2002,10/04/1998 Meningococcal MCV4P [id number]-135 02/23/2016,10/03/19 11 [...] 16 07/28/2025 11:28 AM EST Oxygen Saturation 99% 03/31/2025 8:59 AM EDT Inhaled Oxygen Concentration - - Weight 54 kg (119 lb) 07/28/2025 11:28 AM EST Height 149.9 cm (4' 11 ) 03/31/2025 8:59 AM EDT Body Mass Index 24.04 03/31/2025 8:59 AM EDT Plan of Treatment Health Maintenance Due Date Last Done Comments Family Planning (PISQ) 2012 Hepatitis A Vaccines (2 of 2 - 2-dose series) 08/19/2014 02/17/2014 Pneumococcal Vaccine: Pediatrics (0 to 5 Years) and At-Risk Patients (6 to 49) Years (1 of 2 - PCV) 2016 Dental Oral Exam 09/28/2017 03/27/2017, 03/27/2017 Dental Prophylaxis 10/06/2017 04/04/2017, 11/10/2010 Dental X-Ray: Bitewings 03/28/2018 03/27/2017, 03/27 COVID-19 Vaccine ( season) 2025 02/18/2021, 01/21/2021 Influenza Vaccine (#1) 2025 , 05/31/2023, 07/12/2022, Additional history exists SDOH Screening 08/07/2025 08/07/2024 Alcohol/Substance Use Screening 08/14/2025 08/14/2024 Depression Screening 08/14/2025 08/14/2024, 08/14/20 Dental X-Ray: Full Mouth 09/01/2025 023, 03/27/2017, 03/27/2017 Disability Screening 11/03/2025 11/03/2024 Tobacco Screening 11/27/2025 11/27/2024 DTaP/Tdap/Td Vaccines (8 - Td or Tdap) [...] 02/24, 12/01/2007 Meningococcal Vaccine Completed 02/23/2016, 011 HIV Screening Completed 08/14/2024 Hepatitis C Screening Completed 08/14/2024 Meningococcal B Vaccine Aged Out No l onger eligible based on patient's age to complete this topic RSV under 20 months Aged Out No longe r eligible based on patient's age to complete this topic Rotavirus Vaccines Aged Out No longer eligible based on patient's age to complete this topic Procedures Procedure Name Priority Date/Time Associated Diagnosis Comments POCT , URINE Routine 07/28/2025 11:49 AM EST Missed period HEPATITIS C AB W/REFL TO HCV RNA, QN, PCR Routine 08/14/2024 10:56 AM EST Mild intermittent asthma without complication Routine screening for STI (sexually transmitted infection) HIV 1/2 ANTIGEN/ANTIBODY, FOURTH GENERATION W/RFL Routine 08/14/2024 10:56 AM EST Mild intermittent asthma without complication Routine screening for STI (sexually transmitted infection) HM PAP/HPV Routine 03/10/2024 PROPHYLAXIS - ADULT Routine 04/04/2017 1 2:00 AM EDT INTRAORAL - COMPLETE SERIES OF RADIOGRAPHIC IMAGES Routine 03/27/2017 12:00 AM EDT COMPREHENSIVE ORAL EVALUATION - NEW OR ESTABLISHED PATIENT Routine 03/27/2017 12:00 AM EDT from Last 3 Months or Most Recently Relevant to Health Maintenance Results * POCT Urine (07/28/2025 11:49 AM EST) Preg Test, Ur Negative Negative, Indeterminate, None Detected, Trace, 3+, Specimen unsatisfactory for evaluation, Weakly Positive, 1+, 2+ QC Media Lot # [id number] Lot# Expiration Date Urine 07/28/2025 11:4 9 AM EST Kristi Hernandez MD POINT OF CARE TEST ENTER/EDIT ORDERABLES Final Result * Hepatitis C Antibody with Reflex to HCV, RNA, Quantitative, Real-Time PCR (08/14/2024 10:56 AM EST) Pathologist [facility] Hepatitis C Antibody Nonreactive Nonreactive [facility] Comment:Antibodies to HCV no t detected; does not exclude early acuteHCV infection. Blood Venous blood specimen / Unknown 08/14/2024 10:56 AM EST 08/14/2024 2:14 PM EST us Kristi Hernandez MD LAB BLOOD ORDERABLES Final Re sult [facility] [address] [place] [phone] * HIV-1/2 Antigen and Antibodies, Fourth Generation, with Reflexes (08/14/2024 10:56 AM EST) HIV AB/AG Nonreactive Nonreactive [facility] Comment:HIV-1 p24 Ag and/or HIV-1/HIV-2 Ab not detected.A test result that is nonreactive does not exclude thepossibility of exposure to or infection with HIV-1 and/orHIV-2. Nonreactive results in this assay for individualswith prior exposure to HIV-1 and/or HIV-2 may be due toantigen and antibody levels that are below the limit ofdetection of this assay.The [employer] HIV Ag/Ab Combo assay result andsupplemental assay results should be interpreted inconjunction with the patient's clinical presentation,history and other laboratory results. If the results areinconsistent with clinical evidence, additional testing issuggested to confirm the result. Blood Venous blood specimen / Unknown 08/14/2024 10:56 AM EST 08/14/2024 2:14 PM EST Kristi Hernandez MD LAB BLOOD ORDERABLES Final Re sult [facility] [address] [place] [phone] * HM PAP/HPV (03/10/2024) Pap Smear 1. NILM 1. NILM us Kristi Hernandez MD HEALTH MAINTENANCE Final Resu lt from Last 3 Months or Most Recently Relevant to Health Maintenance [facility] ST[facility] ADULT Care Teams Auto Carrier Driver Relationship Specialty Start Date End Date Kristi Hernandez MD [address] [facility] [place] [address] PCP - General Family Medicine 02/15/12
--- OUTSIDE RECORDS SUMMARY | 2025-07-28 14:18 | XMS_ITS | Encounter Summary ---
Author Organization [employer] Address [address] [place] [address] Care Team Providers Care Frog Or Oyster Farmworker Name Role Phone Kristi Hernandez MD Primary Care Provider [phone] Encounter Details Date Type Department Care Team (Latest Contact Info) Description 07/27/2025 Travel Social History Tobacco Use Types Packs/Day [...] t he electric, gas, oil or water [employer] threatened to shut off services in your [...] documented as of this encounter Care Teams Frog Or Oyster Farmworker Relationship Specialty Start Date End Date Kristi Hernandez MD [address] [place] [phone] PCP - General Family Medicine 02/15/12 documented as of this encounter
--- OUTSIDE RECORDS SUMMARY | 2025-07-28 14:19 | XMS_ITS | Encounter Summary ---
Author Organization [employer] Address [address] [place] [address] Care Team Providers Care Farmworker Fryer Farm Name Role Phone Kristi Hernandez MD Primary Care Provider Encounter Details Date Type Department Care Team (Latest Contact Info) Description 07/28/2025 Travel Social History Tobacco Use Types Packs/Day [...] t he electric, gas, oil or water [employer] threatened to shut off services in your [...] documented as of this encounter Care Teams Farmworker [employer]er Farm Relationship Specialty Start Date End Date Kristi Hernandez MD [address] [place] [phone] PCP - General Family Medicine 02/15/12 documented as of this encounter
[2025-08-03 06:53] LABS: Prolactin Undiluted 8.0 ng/mL
== END 2025-07-28 11:53 | disposition home or self-care (01) ==
LOC: HO.CHCLDS 11:52
PROVIDERS: Visit Provider Pediatrics
DX: N92.6 Irregular menstruation, unspecified (principal)
CPT/HCPCS: 36415; 84146; 84443; 84702